=== PATIENT | male | born 1980 | race Two or more races ===

== ENCOUNTER 2020-08-26 01:20 | Emergency (ER) | payer MEDICAID ==
[~2020-08-26] VITALS: Ht 167.6 cm; Wt 117.9 kg
[2020-08-26 01:40] VITALS: BP 163/87
[2020-08-26 04:03] LABS: Basophils # (auto) 0.1 10 ^3/uL (0-0.2); Basophils % (auto) 0.5 % (0.0-2.0); Eosinophils # (auto) 0.1 10 ^3/uL (0-0.8); Eosinophils % (auto) 0.6 % (0.0-7.0); Hematocrit 46.6 % (41.0-53.0); Hemoglobin 15.3 g/dL (13.5-17.5); Lymphocytes # (auto) 1.6 10 ^3/uL (0.4-5.4); Lymphocytes % (auto) 13.8 % (10.0-50.0); Mean Corpuscular Hemoglobin 29.3 pg (28.0-32.0); Mean Corpuscular Hgb Conc. 32.8 g/dL (32.0-36.0); Mean Corpuscular Volume 89.5 fL (80.0-100.0); Monocytes # (auto) 0.6 10 ^3/uL (0-1.3); Neutrophils # (auto) 9.2 10 ^3/uL (1.6-8.6); Neutrophils % (auto) 80.1 % (37.0-80.0); Platelet Count (auto) 318 10^3/uL (140-450); Red Blood Cells 5.21 10^6/uL (4.5-5.90); Red Cell Distribution Width 13.9 % (11.8-14.3); White Blood Cell 11.5 10^3/uL (4.4-10.8)
[2020-08-26 04:24] LABS: Potassium 3.3 mmol/L (3.5-5.1)
[2020-08-26 04:30] LABS: Albumin 3.7 g/dL (3.4-5.0); BUN/Creatinine Ratio 13.9; Calcium 8.8 mg/dL (8.5-10.1)
[2020-08-26 04:33] LABS: Bilirubin, Total 0.3 mg/dL (0.2-1.0); Total Protein 7.8 g/dL (6.4-8.2)
== END 2020-08-26 04:00 | disposition left against medical advice (07) ==
LOC: ER 01:24
DX: R10.9 Unspecified abdominal pain (principal); Z53.21 Procedure and treatment not carried out due to patient leaving prior to being seen by health care provider
CPT/HCPCS: 36415; 74176; 80053; 85025

== ENCOUNTER → 2024-06-15 | Outpatient (CLI) | payer MEDICAID ==
[~2024-06-15] VITALS: Ht 167.6 cm; Wt 127.0 kg
== END | disposition home or self-care (01) ==
LOC: Rad HDHVI 08:57
PROVIDERS: ATTEND Internal Medicine Cardiovascular Disease
DX: Z01.810 Encounter for preprocedural cardiovascular examination (principal); I10 Essential (primary) hypertension
CPT/HCPCS: 78452; 93017; 96374; A9500

== ENCOUNTER → 2024-06-17 | Outpatient (CLI) | payer MEDICAID | END | disposition home or self-care (01) | LOC: Rad HDHVI 08:05 | PROVIDERS: ATTEND Internal Medicine Cardiovascular Disease | DX: Z01.818 Encounter for other preprocedural examination (principal) | CPT/HCPCS: 93306 ==

== ENCOUNTER 2025-04-26 19:46 | Emergency (ER) | payer MEDICAID ==
[~2025-04-26] VITALS: Ht 167.6 cm; Wt 136.7 kg
--- NOTE | 2025-04-26 20:27 | ED.PDOC ---
History of Present Illness HPI Comments 45 y/o M presents with c/c bilateral lower extremity and testicle swelling, with associated discomfort and shortness of breath. Patient is a poor historian. He endorses of 1x day history of symptoms, that have, progressively, worsened, today, following initial gradual onset. Significant history of water pill medication use for chronic edema, hypertension, pulmonary hypertension, and morbid obesity. Patient reports total cessation of aforementioned water pill medication use since 04/20/25 under medical instruction in preparation for a gastric bypass revision procedure he had that same day. He states on procedure being initiated but stop, prematurely, due to unspecified complications rega rding his liver then and has a followup appointment on 04/28/25 with surgeon. No current antibiotic medication regimen placement. Patient also reports his incision wound site for said procedure, now, beginning drain fluids. Patient denies having any chest pain, nausea, vomiting, urinary symptoms, fever, chills, or further associated symptoms. Chief Complaint: Testicle Pain Time Seen by MD: 20:00 Primary Care Provider: NONE Reviewed Notes: Nurses Notes, Medications, Allergies Allergies: Coded Allergies: NO KNOWN ALLERGIES (Unverified , 08/26/20) Information Source: Patient Mode of Arrival: Ambulatory Severity: Moderate Review of Systems: REVIEW OF SYSTEMS: No fever, no chills, or fatigue HEENT: No sore throat, no earache, no congestion, no neck pain. Cardiac: No chest pain. No palpitations. Lungs: Shortness of breath, no cough. GI: No nausea, no vomiting, no diarrhea, no constipation, no abdominal pain : Bilateral testicle swelling. No dysuria, frequency, or urgency. No hematuria. Musculoskeletal: Bilateral leg swelling. No joint pain , no joint swelling Skin: Draining incision wound. No rash, no itching. Neuro: No headache, no dizziness, no weakness Vital Signs Vital Signs Date Time Temp Pulse Resp B/P (MAP) Pulse Ox O2 Delivery O2 Flow Rate FiO2 04/27/25 04:20 98 Room Air* 0 21 04/27/25 04:20 85 18 143/96 (112) 04/26/25 22:20 98.1 98.1 Physical Exam General: Awake, alert and oriented. No acute distress. Skin: Right abdominal incision wound, that is open with serosanguineous fluid drainage. Otherwise, remaining skin is warm, dry and intact. Appropriate color for ethnicity. HEENT: The head is normocephalic and atraumatic. Conjunctivae are clear without exudates or hemorrhage. Sclera is non-icteric. EOM are intact. No signs of nystagmus. Eyelids are normal in appearance without swelling or lesions. Oral mucosa is pink and moist Neck: The neck is supple with normal range of motion. No JVD. Cardiac: Heart rate and rhythm are normal. No murmurs, gallops, or rubs are auscultated. Respiratory: No signs of respiratory distress. Lung sounds are clear in all lobes bilaterally without rales, rhonchi, or wheezes. Abdominal: Abdomen is soft, non-tender without distention, guarding or rigidity. Bowel sounds are present and normoactive in all four quadrants. Genitourinary: Scrotal swelling, tenderness, erythema, or penile discharge Extremities: Bilateral lower extremity edema. Otherwise, upper and lower extremities are atraumatic in appearance without deformity. Upper extremities without edema. Neurological: The patient is awake, alert and oriented to person, place, and time with normal speech. Speech is clear. There is no facial asymmetry. Psychiatric: Appropriate mood and affect. Good judgement and insight. Past Medical History PAST MEDICAL HISTORY: HTN Past Medical History (Other): Pulmonary hypertension Water pill use for chronic edema Surgical History (Other): gastric bypass Family History Family History: Unknown Social History Smoker: Non-Smoker Alcohol: Denies ETOH Use Drugs: Denies Drug Use Lives In: Home Was a procedure done? Was a procedure done?: No Differential Dx Considerations may include: Fluid retention, medication noncompliance, CHF, neuropathy, peripheral edema, ascites, hepatitis, surgical wound and infected, among X-Ray, Labs, Meds, VS Vital Signs Date Time Temp Pulse Resp B/P (MAP) Pulse Ox O2 Delivery O2 Flow Rate FiO2 04/27/25 04:20 98 Room Air* 0 21 04/27/25 04:20 85 18 143/96 (112) 98 04/26/25 22:21 130/97 04/26/25 22:20 98.1 81 20 130/97 (108) 95 98.1 04/26/25 20:06 98.1 89 18 156/108 (124) 98 98.1 Lab Test 04/26/25 21:02 04/26/25 21:00 Range/Units Urine Color Light-yellow Yellow Urine Clarity Clear Clear Urine pH 5.5 5.0-9.0 Urine Specific [place] 1.015 1.001-1.035 Urine Protein Trace H Negative Urine Ketones Negative Negative Urine Blood Negative Negative /uL Urine Nitrite Negative Negative Urine Bilirubin Negative Negative Urine Urobilinogen Normal Negative mg/dL Urine Leukocyte Esterase Negative Negative /uL Urine RBC 1 0 - 3 /hpf Urine Microscopic WBC 1 0-3 /HPF Urine Squamous Epithelial Cells Few <5 /hpf Urine Bacteria Few H None Seen /hpf Urine Glucose Normal Normal mg/dL White Blood Count 12.0 H 4.4-10.8 10^3/uL Red Blood Count 4.60 4.5-5.90 10^6/uL Hemoglobin 14.3 13.5-17.5 g/dL Hematocrit 43.6 41.0-53.0 % Mean Corpuscular Volume 94.9 80.0-100.0 fL Mean Corpuscular Hemoglobin 31.1 28.0-32.0 pg Mean Corpuscular Hemoglobin Concent 32.8 32.0-36.0 g/dL Red Cell Distribution Width 15.4 H 11.8-14.3 % Platelet Count 210 140-450 10^3/uL Mean Platelet Volume 7.9 6.9-10.8 fL Neutrophils (%) (Auto) 37.0-80.0 % Lymphocytes (%) (Auto) 10.0-50.0 % Monocytes (%) (Auto) 0.0-12.0 % Basophils (%) (Auto) 0.0-2.0 % Neutrophils # (Auto) 1.6-8.6 10 ^3/uL Lymphocytes # (Auto) 0.4-5.4 10 ^3/uL Monocytes # (Auto) 0-1.3 10 ^3/uL Differential Total Cells Counted 100.0 100 Neutrophils % (Manual) 67 37.0-80.0 Band Neutrophils % (Manual) 2 Lymphocytes % (Manual) 20 10.0-50.0 Monocytes % (Manual) 10 0-12 Eosinophils % (Manual) 1 0-7 Basophils % (Manual) 0 0.0-2.0 Metamyelocytes % (manual) 0 Myelocytes % (Manual) 0 Promyelocytes % (Manual) 0 Blast Cells % (Manual) 0 Reactive Lymphocytes 0 Platelet Estimate Adequate Anisocytosis (manual) Slight Sodium Level 139 136-145 mmol/L Potassium Level 5.6 *H 3.5-5.1 mmol/L Chloride Level 107 98-107 mmol/L Carbon Dioxide Level 25 20-31 mmol/L Anion Gap 7 5-15 Blood Urea Nitrogen 30 H 9-23 mg/dL Creatinine 1.75 H 0.700-1.30 mg/dL Glomerular Filtration Rate Calc 48 >90 mL/min BUN/Creatinine Ratio 17.1 10.0-20.0 Serum Glucose 105 74-106 mg/dL Calcium Level 10.3 8.7-10.4 mg/dL Total Bilirubin 1.2 H 0.2-1.0 mg/dL Aspartate Amino Transferase (AST) 88 H 13-40 U/L Alanine Aminotransferase (ALT) 125 H 7-40 U/L Alkaline Phosphatase 229 H 46-116 U/L B-Type Natriuretic Peptide 343.66 0-100 pg/mL Total Protein 6.3 5.7-8.2 g/dL Albumin 4.0 3.2-4.8 g/dL Current Medications Medications (Trade) Dose Ordered Sig/Davion Route Start Time Stop Time Status Last Admin Furosemide (Lasix Injection) 40 mg ONCE ONCE IV 04/26/25 20:15 04/26/25 20:16 DC 04/26/25 22:21 Piperacillin Sod/ Tazobactam Sod 100 ml @ 100 mls/hr ONCE ONCE IV 04/27/25 01:30 04/27/25 02:29 DC 04/27/25 03:00 Time of 1ST Reevaluation: 20:30 Reevaluation 1ST: Unchanged Patient Education/Counseling: Treatment, Need For Follow Up Family Education/Counseling: No Family Present SEPSIS Sepsis Screen Physician Orders Chest Xray 1 View (04/26/25 20:04) Testicular Ultrasound (04/26/25 20:04) Ct Ab Pel Wo Con-No Oral Or Iv (04/26/25 20:04) Ct Ab Pel With Iv Con Only (04/26/25 23:47) Imaging Transfer Request (04/27/25 02:05) Lactic Acid W/ Reflex Order (04/27/25 06:12) Vital Signs Date Time Temp Pulse Resp B/P (MAP) Pulse Ox O2 Delivery O2 Flow Rate FiO2 04/27/25 04:20 98 Room Air* 0 21 04/27/25 04:20 85 18 143/96 (112) 98 04/26/25 22:21 130/97 04/26/25 22:20 98.1 81 20 130/97 (108) 95 98.1 04/26/25 20:06 98.1 89 18 156/108 (124) 98 98.1 Laboratory Tests Test 04/26/25 21:00 White Blood Count 12.0 10^3/uL (4.4-10.8) H Medications Medications Dose Ordered Sig/Davion Route Start Time Stop Time Status Last Admin Dose Admin Furosemide 40 mg ONCE ONCE IV 04/26/25 20:15 04/26/25 20:16 DC 04/26/25 22:21 Piperacillin Sod/ Tazobactam Sod 100 ml @ 100 mls/hr ONCE ONCE IV 04/27/25 01:30 04/27/25 02:29 DC 04/27/25 03:00 Departure 1 Departure Time of Disposition: 22:29 Impression: Primary Impression: Anasarca Additional Impression: Liver abscess Disposition: ADMITTED INPATIENT Condition: Stable Comments 45 year old male s/p laparoscopy presents with anasarca, draining/open surgical wound CT suggestive of possible liver abscess Case discussed with Dr. Cristina at [facility] who accepts patient for transfer Extensive evaluation was performed in attempt to identify or rule out: (See differential diagnosis section) The following tests were ordered, and results were reviewed by me and discussed with patient: (See diagnostic results section) The following test were independently interpreted by me: N/A I reviewed and agreed with the following test results read by other providers: Chest x-ray, CT abdomen and pelvis without contrast, testicular ultrasound I reviewed the following notes from the pt's past medical encounters: August 26, 2020 counter for abdominal pain Additional information was gathered from interviewing the following independent historians: N/A Discussion of management or test interpretation with external physician/other qualified health director of managed care: Yes Critical Care Note Critical Care Time?: No Stability Stability form required: No Heart Score Heart Score: Heart Score Response (Comments) Value History N/A 0 EKG N/A 0 Age N/A 0 Risk Factors N/A 0 Troponin N/A 0 Total 0 I personally scribed for JUAN HOLGUIN MD ([email or web address]) on 04/26/25 at 20:27. Electronically submitted by iRki Melgar ([email or web address]). I personally scribed for JUAN HOLGUIN MD ([email or web address]) on 04/26/25 at 20:28. E lectronically submitted by Riki Melgar ([email or web address]). JUAN HOLGUIN MD Apr 26, 2025 20:27
--- NOTE | 2025-04-26 20:51 | DVH ---
ULTRASOUND OF SCROTUM AND CONTENTS. INDICATION: Scrotal edema COMPARISON: None TECHNIQUE: Multiple real-time grayscale sonographic and color and duplex Doppler images of the scrotu m and its contents were obtained. FINDINGS: RIGHT TESTICLE: Measures 3.66 X 3.11 X 3.51 cm. RIGHT EPIDIDYMIS MEASURES 24.8 MM THERE IS A SMALL RIGHT HYDROCELE LEFT TESTICLE: Measures 3.74 x 2.57 x 2.85 cm. Both testicles demonstrate homogeneous echotexture without evidence of focal lesions. The right epididymal head measures 24.8 mm. The left epididymal head measures 18.2 mm. Subsequent color and duplex Doppler interrogation of the testes demonstrated symmetric normal vascula r flow to both testicles. No focal areas of hyperemia were seen. IMPRESSION: 1. No evidence of torsion, epididymitis, and/or orchitis. 2. Right testicle measures 3.66 cm. Left testicle measures 3.74 cm. 3. Bilateral hydroceles 4. Scrotal wall thickening
--- NOTE | 2025-04-26 21:04 | DVH ---
CHEST RADIOGRAPH Indication: Bilateral lower extremity edema rule out CHF Technique: Single frontal view of the chest was obtained COMPARISON: None FINDINGS: Lines and Tubes: None Lungs: Mild interstitial pulmonary edema. Pleura: No effusion. No pneumothorax. Cardiomediastinal contours: Unremarkable Bones: Unremarkable IMPRESSION: 1. Mild interstitial pulmonary edema.
[2025-04-26 21:16] LABS: Urine Protein, UAD TRACE (Negative)
[2025-04-26 21:18] LABS: Hematocrit 43.6 % (41.0-53.0); Hemoglobin 14.3 g/dL (13.5-17.5); Mean Corpuscular Hemoglobin 31.1 pg (28.0-32.0); Mean Corpuscular Volume 94.9 fL (80.0-100.0)
[2025-04-26 21:30] LABS: Albumin 4.0 g/dL (3.2-4.8); Anion Gap 7 (5-15); BUN/Creatinine Ratio 17.1 (10.0-20.0); Bilirubin, Total 1.2 mg/dL (0.2-1.0); Calcium 10.3 mg/dL (8.7-10.4); Carbon Dioxide 25 mmol/L (20-31); Chloride 107 mmol/L (98-107); Glucose 105 mg/dL (74-106); Sodium 139 mmol/L (136-145); Total Protein 6.3 g/dL (5.7-8.2)
[2025-04-26 21:42] LABS: Alanine Aminotransferase 125 U/L (7-40); Alkaline Phosphatase 229 U/L (46-116); Blood Urea Nitrogen 30 mg/dL (9-23)
[2025-04-26 21:43] LABS: Potassium 5.6 mmol/L (3.5-5.1)
--- NOTE | 2025-04-26 21:55 | DVH ---
Exam: CT CT AB PEL WO CON-NO ORAL OR IV History: abd distention, LE edema, surgical wound drainage Comparison Study: CT ABD PELVIS WO CONTRAST on DOS: 08/26/20 TECHNIQUE: Multidetector CT of the abdomen was performed from lung bases to pubic symphysis. Imaging was performed without IV contrast. Axial, coronal and sagittal multiplanar reformats were obtained fr om the axial data set by the technologist. Radiation Dose Information: CT Dose: CTDI volume is 26.86 mGy. Dose-length product is 1545.28 mGy*cm FINDINGS: Evaluation of solid organs is limited due to lack of intravenous contrast use. Findings: Lung Bases: No acute or significant lung base finding. Normal heart size. No pleural or pericardial effusion. Liver: Questionable 4 cm mass left lobe of the liver series 2 image 25- 30 recommend repeat with IV c ontrast. Gallbladder and Biliary Tree: Unremarkable Spleen: Unremarkable Pancreas: The pancreas is grossly normal in appearance. Adrenal Glands: Unremarkable Kidneys: Kidneys are grossly normal without calculi or hydronephrosis. Bladder: Grossly unremarkable for degree of distention. Bowel: The stomach is grossly normal in appearance. Small bowel and colon are normal in caliber and d istribution. The appendix is not visualized; however, no secondary findings of acute appendicitis id entified. Ascites: Absent Lymphadenopathy: No mesenteric, retroperitoneal or periportal lymphadenopathy. Abdominal Wall and Mesentery: Unremarkable. Vasculature: The visualized abdominal aorta is normal in size and caliber. Evaluation of abdominal a nd pelvic vessels is limited due to lack of intravenous contrast. Pelvic Organs: Unremarkable Musculoskeletal: No aggressive focal bony lesions, acute fractures or dislocation. Soft tissues: Unremarkable IMPRESSION: 1. 4 cm complex hypodense lesion left lobe of the liver horizon open (series 2 images: 25-30). Recom mend contrast CT of the abdomen for comparison. 2. Subcutaneous edema throughout the abdomen and pelvis suggesting anasarca. Radiation optimization: All CT scans at this facility use at least one of these dose optimization turner hniques: automated exposure control mA and/or kV adjustment per patient size (includes targeted exam s where dose is matched to clinical indication) or iterative reconstruction.
[2025-04-26] MEDS: FUROSEMIDE 40 MG/4 ML VIAL IV ONE (22:21)
[2025-04-26 22:30] LABS: Anisocytosis Slight; Total Cells Counted 100.0 (100)
[2025-04-27] MEDS: IOHEXOL 300 MG/ML 100ML BOTTLE IJ ONE (00:11)
--- NOTE | 2025-04-27 01:09 | DVH ---
Exam: CT CT AB PEL WITH IV CON ONLY History: Right liver lobe lesion Comparison Study: None TECHNIQUE: A digital sales development associate image was obtained. During the uneventful, intravenous administration of c ontrast material, multislice data acquisition was obtained through the abdomen and pelvis. The data s et was subsequently reconstructed into multiplanar reformats. RADIATION DOSE: CTDI vol 27.6 tail mGy. DLP 1532.47 mGy.cm Findings: Liver: There is a 4.7 x 3.0 cm intermediate density lesion within the left hepatic lobe containing lo cules of gas. An additional indeterminate region of low attenuation is seen contouring the left hepat ic lobe measuring 2.7 cm in greatest diameter. Spleen: Unremarkable. Pancreas: Unremarkable. Gallbladder: Contracted in appearance. Adrenals: Unremarkable Kidneys: Unremarkable. Pelvic Viscera: Unremarkable. Vasculature: Unremarkable. Retroperitoneum: Mild nonspecific mesenteric edema. Bowel: No bowel obstruction. No CT evidence of appendicitis. Postsurgical changes of the stomach. Musculoskeletal: Mild compression of the superior endplate of L2 with associated Schmorl's node. Mil d degenerative changes of the thoracolumbar spine. Soft tissues: Diffuse subcutaneous edema. Lungs: The lung bases are clear. Impression: 1. 4.7 cm indeterminate left hepatic lesion containing gas, favored to reflect an abscess in the appr opriate clinical setting. If clinically indicated, an MRI may be beneficial in further assessment. A posttreatment follow-up is suggested to ensure appropriate resolution. 2. 2.7 cm indeterminate left hepatic lesion, which may also be further evaluated on MRI. 3. Additional findings as detailed.
[2025-04-27] MEDS: PIPERACILLIN-TAZOB 3.375GM 100 ML IV ONE (03:00)
[2025-04-27 04:20] VITALS: O2SAT 98
[2025-04-27 08:10] VITALS: BP 126/90; PULSE 81; RESP 18; TEMP 97.4; O2SAT 98
[2025-04-27] MEDS: LORazepam 2MG/ML-1ML VIAL IV ONE (08:48)
== END 2025-04-27 11:30 | disposition short-term general hospital (02) ==
LOC: ER 19:46
DX: K75.0 Abscess of liver (principal); R60.1 Generalized edema; I10 Essential (primary) hypertension; I27.20 Pulmonary hypertension, unspecified; E66.01 Morbid (severe) obesity due to excess calories; Z98.84 Bariatric surgery status; Z68.42 Body mass index [BMI] 45.0-49.9, adult
CPT/HCPCS: 36415; 71045; 74176; 74177; 76870; 80053; 81001; 83605; 83880; 85007; 85027; 96365; 96366; 96375; 99285; J1938; J2060; J2543; Q9967